=== PATIENT | female | born 1955 | race Caucasian/White ===

== ENCOUNTER 2018-02-15 10:12 | Emergency (ER) | payer OTHER, SELFPAY ==
[2018-02-15 10:12] VITALS: BP 140/69; PULSE 99; RESP 20; TEMP 36.6; O2SAT 99; BMI 21.9
--- NOTE | 2018-02-15 10:37 | ED.RN ---
Spoke with Dr. Diop, orders entered on wrong patient.
--- NOTE | 2018-02-15 11:39 | ED.DCSUM_ITS ---
- ER Visit Summary Date of Service: 02/15/18 Chief Complaint: [] Right foot cellulitis for about 5 days History of Present Illness: The patient is a 62 F [] history of same developed a red patch over the right dorsal foot a few days ago was seen at wound clinic system was placed on Bactrim she reports she is taking 4 days of Bactrim with no improvement, she has had a history of his process in the past related to a foot fungus, she has no history of MRSA she has had no fever no cough no shortness of breath no trauma to her foot in any way no pain just a persistent red spot on her right foot she is asked to the antibiotic be changed she has an allergy to cephalexin Physical Examination: [] She looks well her vital signs are within normal range she is in no distress her right foot is her only issue see the template for the rest of the details of her exam she has a about a 2 x 3 cm red patch to the top of her right foot there is no skin breakdown petechia purpura puts well- perfused there is no signs of yeast between her toes nontender foot nontender ankle tib-fib no lymphangitic streaking Test Results: [] Emergency Department Course and Treatment: [] On conversation with her the has had this in the past usually responds to Bactrim no risk factors for MRSA or serious life threatening infection at this time given the allergy to cephalexin the failure of the Bactrim we will switch her to clindamycin, 1 g Rocephin IM and she will follow-up with her doctors in the next few days return for any worsening of her symptomatology Treatment Plan: [] Disposition: [] Home stable Impression: [] Right foot cellulitis This note was generated with [employer] dictation software. It may contain incorrect words, spelling, and punctuation that were not noted in review of the chart prior to signing ED Disposition - Plan for ED Patient: Chief Complaint: Cellulitis Referrals: Care Physician,No Primary [Primary Care Provider] -
--- NOTE | 2018-02-15 11:39 | ED.DEP ---
ED Disposition - Plan for ED Patient: Chief Complaint: Cellulitis Instructions: Discharge Instructions for Cellulitis Prescriptions: Clindamycin HCl [Cleocin] 300 mg PO Q6H #28 cap Referrals: Care Physician,No Primary [Primary Care Provider] - Theodore Almanza DO [NON CLINICAL AFFILIATE] -
[2018-02-15] MEDS: Ceftriaxone 1 GM Vial IM (12:24)
== END 2018-02-15 12:29 | disposition home or self-care (01) ==
LOC: ED 11:10
PROVIDERS: Emergency Provider Emergency Medicine
DX: L03.115 Cellulitis of right lower limb (principal)
CPT/HCPCS: 96372; 99281; J7040

== ENCOUNTER → 2021-01-09 07:48 | Outpatient (CLI) | payer SELFPAY ==
--- NOTE | 2021-01-09 08:02 | US_ITS ---
STUDY: ULTRASOUND BREAST - RIGHT REASON FOR EXAM: Female, 65 years old. Abnormal mammogram TECHNIQUE: Axial and longitudinal images of the RIGHT breast were performed with a high resolution ultrasound transducer. # OF IMAGES: 17 COMPARISON: None. FINDINGS: RIGHT Breast: Ultrasound guided right breast biopsy. At 12 o''clock, 7 cm from the nipple, a sharp and smooth anechoic nodule was sampled with multiple mammotome samples. A clip was placed and visualized by ultrasound again at 12 o''clock, 7 cm from the nipple. No procedural complications noted. US/US Breast Biopsy 1st Lesion IMPRESSION: Successful sonographically guided mammotome biopsy with clip placement. ASSESSMENT CATEGORY: BIRADS Category 0, final BIRADS category assessment will be performed after pathology results are known Electronically Signed: Efrain Briones MD at 9:18 EDT , Service support ,
--- NOTE | 2021-01-09 08:40 | BRBX_PTH ---
PATIENT: ABDI DE JESUS LOC: [facility] U#:[id number] AGE/SX: 70/F ROOM: RE01/09/[address]: Dr. Shaquille Bright MD : [id number] BED: DIS: SPEC #: [id number] RECD: 01/09/21 09:44 STATUS: WILIAM REElizabeth #: [id number] KOLTON: 01/09/21 08:[address]: Shaquille Bright DEPT: SURGICAL PATHOLOGY RECD BY: Lindsay Woodward ENTERED: 01/09/21 12:56 SP TYPE: BREAST BX OTHR DR: Dr. Yaa Mays MD Tissues: Breast, NOS Procedures: Surgery Specimen Level IV HEADER OPERATION: Right breast biopsy PRE-OP DIAGNOSIS: TISSUE SUBMITTED: Right breast biopsy ISCHEMIC TIME: 1 minute FIXATION TIME: 11 hours MICROSCOPIC DIAGNOSIS Right breast, core biopsy: Fragments of fatty benign breast tissue, no pathologic diagnosis. See comment. STEVEN:myra 01/10/2021 COMMENT Correlation with clinical, radiologic findings and appropriate follow up are necessary. Re-biopsy is suggested if clinically indicated. MICROSCOPIC DESCRIPTION Slides are reviewed. GROSS DESCRIPTION Received in fixative is one container labeled with the patient name and designated right breast. The specimen consists of multiple elongated fragments of hurtado-yellow fibroadipose tissue that in aggregate measure 2.5 x 0.7 x 0.1 cm. The entire specimen is submitted in one cassette. / SJ:myra 01/09/21 TC:4 CPT: 27362
--- NOTE | 2021-01-09 08:54 | BI_ITS ---
STUDY: MAMMOGRAPHY 2 VIEWS RIGHT REASON FOR EXAM: Female, 65 years old. Post biopsy clip placement RADIATION DOSAGE (If Supplied By Facility): CTDIvol = ( ) mGy, DLP = ( ) mGycm. Individualized dose optimization techniques were used for this CT.? TECHNIQUE: CC and MLO views COMPARISON: 12/19/2020 FINDINGS: CC and MLO views of the right breast were performed after biopsy. Postbiopsy clip is been placed at the site of biopsy deep near the pectoralis muscle. No complications noted. BI/DIAG MAMM W/CAD, UNILAT IMPRESSION: Successful biopsy biopsy clip placement. BIRADS categorization will be finalized after biopsy results are known Electronically Signed: Efrain Briones MD at 10:05 EDT , Service support ,
--- NOTE | 2021-01-09 09:43 | OP.PCM_ITS ---
Problem List (1) Abnormal mammogram of right breast Status: Acute Report of Operation Date of Procedure: 01/09/21 Pre-Operative Diagnosis: Abnormal mammogram right breast Post-Operative Diagnosis: Same Surgery/Procedure Performed:: Ultrasound-guided handheld mammotome breast biopsy to right breast Type of Anesthesia:: Local Description of Procedure: Patient was brought into the ultrasound room. Placed in the supine position. Ultrasound of the right breast at the 12 o'clock position approximately 7 mm from the nipple areolar complex lesion was identified. It measured approximately 6 mm in width. It was oblong. Prepped the skin with chlorhexidine. I injected 1% lidocaine plain. I injected local posterior to the lesion under ultrasound guidance. Skin huy was made. I directed the hand- held mammotome needle posterior to the lesion under ultrasound guidance. Under ultrasound guidance numerous biopsies were obtained. Under ultrasound guidance a small titanium clip was placed. Sterile dressings were applied. Standard mammogram was obtained. Patient tolerated procedure well. - Admit VTE Documentation VTE Present on Admission: No VTE Mechan Device Prophylaxis: None VTE Pharm Prophylaxis ordered?: No Reason prophylaxis not ordered:: Treatment Not Indicated
== END ==
PROVIDERS: PCP Internal Medicine; Referring Provider Surgery; Visit Provider Surgery
DX: R92.8 Other abnormal and inconclusive findings on diagnostic imaging of breast (principal)
CPT/HCPCS: 19083; 77065; 88305

== ENCOUNTER 2021-02-01 09:12 | Outpatient (RCR) | payer MEDICARE, SELFPAY | END 2021-03-13 23:59 | LOC: IMMUN 09:12 | PROVIDERS: PCP Internal Medicine; Referring Provider Family Medicine; Visit Provider Family Medicine | DX: Z23 Encounter for immunization (principal) | CPT/HCPCS: 0001A; 0002A; 91300 ==

== ENCOUNTER 2023-06-15 10:25 | Emergency (ER) | payer BC, SELFPAY ==
[2023-06-15 10:26] VITALS: BP 168/77; PULSE 84; RESP 81; TEMP 36.4; O2SAT 16; BMI 23.9
[2023-06-15 10:43] VITALS: BP 124/78; PULSE 64; RESP 16; TEMP 36.4; O2SAT 99
--- NOTE | 2023-06-15 10:44 | EDS_ITS ---
HPI History of Present Illness Chief Complaint: Bite Informant: patient Narrative Narrative: Patient and her have been exposed to a bat flying around for maybe a week or so, multiple rooms including her bedroom, had an ledge man over but they were unable to catch it or find it right now. No known injury or bite but here basically for rabies vaccinations which she has not had before. She is not immunocompromised. [facility] Medical History (Updated 06/15/23 @ 14:[address] Andres Mendosa MD) Hypothyroid Home Medications calcium carbonate 500 mg-vitamin D3 5 mcg (200 unit) tablet (Calcium 500 + D) 1 ea PO DAILY 02/15/18 [History Last Taken Unknown] clindamycin HCl 300 mg capsule 300 mg PO Q6H #28 caps 02/15/18 [Rx Last Taken Unknown] garlic 1,000 mg capsule 1 tab PO DAILY 02/15/18 [History Last Taken Unknown] levothyroxine 25 mcg tablet 25 mcg PO DAILY 02/15/18 [History Last Taken Unknown] multivitamin (Multiple Vitamins tablet) 1 ea PO DAILY 02/15/18 [History Last Taken Unknown] sulfamethoxazole 800 mg-trimethoprim 160 mg tablet 1 tab PO BID 02/15/18 [History Last Taken Unknown] Allergy/AdvReac Type Severity Reaction Status Date / Time cephalexin Allergy Hives Verified 02/15/18 10:14 Social History Smoking Status: Never smoker ROS [facility] ED Constitutional Constitutional ED: Denies chills or fever(s) Integumentary Denies Abrasions, lesions or rash Neurologic Neurologic: Denies headache(s), paresthesias or weakness EXAM Physical Exam Const Vital Signs: 06/15/23 10:26 06/15/23 10:43 Temperature 97.5 F L 97.6 F L Temperature Source Temporal Pulse Rate 84 64 Respiratory Rate 81 H 16 Blood Pressure 168/77 H 124/78 H Blood Pressure Mean 107 Pulse Ox 16 99 Oxygen Delivery Method Room Air Positive well nourished and well developed General Appearance ED: well developed and NAD HEENT Reports moist mucous membranes Extremity normal to inspection Neuro oriented x3, CN's II-XII intact bilaterally, no sensory deficits noted and gait normal Motor Exam: strength 5/5 throughout Psych mental status grossly normal Skin no rashes or lesions noted, no wounds and skin turgor normal MDM MDM MDM Narrative Medical decision making narrative: Initial rabies vaccination given here, patient set up for the next 3 injections. No RIG indicated since she has no suspected bites. Discharge Plan Triage Chief Complaint: Bite ED Provider: Andres Mendosa Dx/Rx/DC Orders Clinical Impression: Exposure to bat without known bite Instructions: Understanding Rabies Prescriptions: No Action multivitamin [Multiple Vitamins] 1 EACH tablet 1 ea PO DAILY sulfamethoxazole-trimethoprim 1 TABLET tablet 1 tab PO BID levothyroxine 25 MCG tablet 25 mcg PO DAILY garlic 1,000 MG capsule 1 tab PO DAILY calcium carbonate-vitamin D3 [Calcium 500 + D] 1 EACH tablet 1 ea PO DAILY clindamycin HCl 300 MG capsule 300 mg PO Q6H Qty: 28 0RF Primary Care Provider: Yaa Mays Referrals: Yaa Mays MD [Primary Care Provider] - Activity Restrictions/Additional Instructions: Return to ER as directed for the next 3 vaccine doses Disposition Disposition: Home, Self Care Discharge Date/Time: 06/15/23 11:53
[2023-06-15] MEDS: Rabies Vaccine,Human Diploid 2.5 UNITS Vial IM (11:35)
== END 2023-06-15 11:53 | disposition home or self-care (01) ==
LOC: ED 10:57
PROVIDERS: Emergency Provider Emergency Medicine; PCP Internal Medicine; Visit Provider Emergency Medicine
DX: Z29.14 Encounter for prophylactic rabies immune globulin (principal); E03.9 Hypothyroidism, unspecified; Z79.899 Other long term (current) drug therapy
CPT/HCPCS: 90675; 99282

== ENCOUNTER 2023-06-18 10:53 | Outpatient (CLI) | payer MEDICARE, SELFPAY ==
[2023-06-18 10:54] VITALS: BP 146/68; PULSE 76; RESP 18; TEMP 36.4; O2SAT 99; BMI 23.9
[2023-06-18] MEDS: Rabies Vaccine,Human Diploid 2.5 UNITS Vial IM (11:30)
== END 2023-06-18 11:45 | disposition home or self-care (01) ==
PROVIDERS: PCP Internal Medicine; Visit Provider Emergency Medicine
DX: Z23 Encounter for immunization (principal)
CPT/HCPCS: 90675; 96372

== ENCOUNTER 2023-06-22 16:17 | Outpatient (CLI) | payer MEDICARE, SELFPAY ==
[2023-06-22 16:25] VITALS: BP 138/77; PULSE 79; RESP 18; TEMP 36.3; O2SAT 94
[2023-06-22] MEDS: Rabies Vaccine,Human Diploid 2.5 UNITS Vial IM (16:51)
== END 2023-06-22 17:10 | disposition home or self-care (01) ==
PROVIDERS: PCP Internal Medicine; Visit Provider Emergency Medicine
DX: Z23 Encounter for immunization (principal)
CPT/HCPCS: 90675; 96372

== ENCOUNTER 2023-06-29 16:09 | Emergency (ER) | payer MEDICARE, SELFPAY ==
[2023-06-29 16:43] VITALS: PULSE 52; RESP 18; TEMP 36.9; O2SAT 97
[2023-06-29] MEDS: Rabies Vaccine,Human Diploid 2.5 UNITS Vial IM (16:46)
== END 2023-06-29 17:31 | disposition home or self-care (01) ==
PROVIDERS: Emergency Provider Emergency Medicine; PCP Internal Medicine
DX: Z23 Encounter for immunization (principal)
CPT/HCPCS: 90675; 96372